=== PATIENT | male | born 1960 | race Caucasian/White ===

== ENCOUNTER 2018-03-05 05:48 | Inpatient (IN) | payer OTHER ==
[2018-03-05] VITALS (33 sets, daily range): BP systolic 98–168; BP diastolic 58–96; PULSE 65–112; RESP 13–22; BMI 40.4
[~2018-03-05] VITALS: Ht 157.5 cm; Wt 100.2 kg
[2018-03-05] MEDS ORDERED: CELECOXIB 200 MG CAP PO SCH (06:06)
[2018-03-05] MEDS ORDERED: TRANEXAMIC ACID 1,000 MG in NS 100 ML PRE-OP X1 IVPB ONE (06:06)
[2018-03-05] MEDS ORDERED: TRANEXAMIC ACID 1,000 MG in NS 100 ML INTRA-OP X1 IVPB ONE (06:06)
[2018-03-05] MEDS ORDERED: ACETAMINOPHEN 1000MG/100ML IV 100 ML IVPB ONE (06:06)
[2018-03-05] MEDS ORDERED: GABAPENTIN 300 MG CAP PO SCH ×2 (06:06→21:00)
[2018-03-05] MEDS ORDERED: CEFAZOLIN 2 GM/50 ML (PMX) 50 ML IVPB ONE (06:06)
[2018-03-05] MEDS ORDERED: DEXAMETHASONE 4 MG/ML 1 ML INJ IV SCH (06:06)
[2018-03-05] MEDS ORDERED: LACTATED RINGER'S 1,000 ML IV* SCH (06:06)
[2018-03-05] MEDS ORDERED: LANSOPRAZOLE 30 MG CAP PO ONE (06:30)
[2018-03-05] MEDS ORDERED: ONDANSETRON 4 MG INJ IV ONE (06:30)
[2018-03-05] MEDS ORDERED: SEVOFLURANE 15 MIN ONE (07:00)
[2018-03-05] MEDS ORDERED: CEFAZOLIN 1 GM INJ ONE (07:00)
--- NOTE | 2018-03-05 07:24 | PREAC ---
Date/Time of Note Date/Time of Note DATE: 03/05/18 TIME: 07:22 Anesthesia Eval and Record Evaluation Time Pre-Procedure Interview DATE: 03/05/18 TIME: 07:22 Age 57 Sex male NPO: 8 hrs Preoperative diagnosis right hip osteoarthritis Planned procedure right total hip replacement Past Medical History Past Medical History: Includes Cardio: Dyslipidemia GI: Morbid obesity Surgery & Anesthesia Issues No known issue Meds Anticoagulation: No Beta Renée within 24 hr: No Reason Beta Renée not given: Pt. not on B-Renée No Active Prescriptions or Reported Meds Current Medications Lactated Ringer's 1,000 ml @ 125 mls/hr Q8H IV* Last administered on 03/05/18at 06:29; Admin Dose 125 MLS/HR; Start 03/05/18 at 06:06; Stop 03/05/18 at 13:59 Dexamethasone (Decadron) 10 mg ONCE IV Last administered on 03/05/18at 06:29; Admin Dose 10 MG; Start 03/05/18 at 06:06; Stop 03/05/18 at 15:00 Gabapentin (Neurontin) 300 mg ONCE PO Last administered on 03/05/18at 06:28; Admin Dose 300 MG; Start 03/05/18 at 06:06; Stop 03/05/18 at 15:00 Celecoxib (Celebrex) 400 mg ONCE PO Last administered on 03/05/18at 07:09; Admin Dose 400 MG; Start 03/05/18 at 06:06; Stop 03/05/18 at 15:00 Ropivacaine/ Clonidine/ Epinephrine/ Ketorolac Tromethamine/ Sodium Chloride INTRA-OP INJ ; Start 03/05/18 at 16:00 Meds reviewed: Yes Allergies Coded Allergies: No Known Allergies (Verified Allergy, Unknown, 03/05/18) Allergies Reviewed: Yes Labs/Studies Labs Reviewed: Reviewed by anesthesiologist test: N/A Studies: ECG (nsr), CXR (nad) Pre-procedure Exam Last vitals Vital Signs Date Temp Pulse Resp B/P (MAP) Pulse Ox O2 O2 Flow FiO2 Time Delivery Rate 03/05/18 98.0 65 18 168/96 98 Room Air 07:00 (120) Airway: Adequate mouth opening, Adequate thyromental dist Mallampati: Mallampati II Teeth: Normal Lung: Normal Heart: Normal ASA Physical Status ASA physical status: 3 Emergency: None Planned Anesthetic General/MAC: ETT (vs. ), LMA Neuraxial: Spinal Planned Pain Management Sub-arachniod narcotics, Parenteral pain med Pre-operative Attestations Prior to commencing anesthesia and surgery, the patient was re-evaluated, there was verification of: *The patient's identity *The results of appropriate recent lab work and preoperative vital signs *The above evaluation not changing prior to induction *Anesthetic plan, risk benefits, alternative and complications discussed with patient/family; questions answered; patient/family understands, accepts and w ishes to proceed. DIANNA LEDBETTER MD Mar 05, 2018 07:24
--- NOTE | 2018-03-05 07:26 | HPN ---
Date/Time of Note Date/Time of Note DATE: 03/05/18 TIME: 07:25 Interval H&P Admission Note Pt. seen H&P reviewed: No system changes RLE: skin intact. SILT may/sa/spn/dpn/plantar nerves. +TA/GCS/EHL/FHL. 2+ DP pulse EJ GAMEZ MD Mar 05, 2018 07:26
[2018-03-05] MEDS ORDERED: MIDAZOLAM 1 MG/ML 2 ML INJ ONE (07:46)
--- NOTE | 2018-03-05 07:56 | PDOCDIS ---
Discharge Instructions DIAGNOSIS Discharge Diagnosis Status post right total hip arthroplasty via posterior route CONDITION [id number] Patient Condition: [id number] Good HOME CARE INSTRUCTIONS: [id number] Diet Instructions: [id number] Regular ACTIVITY: [id number] Activity Restrictions: [id number] Slowly Increase Activity Rest between Activity Avoid heavy lifting No Sexual Activity Do not Drive Do not operate Machinery Do not operate Power Tool Avoid Heavy Housework Keep Limb Elevated (Okay to apply cold therapy over dressing while resting.) Weight Bearing (Weight-bear as tolerated using front-wheeled walker) [id number] Bathing Restrictions: [id number] Shower (Okay to shower with aqua cell dressing. Aquacel dressing to remain on until seen postoperatively. Do not rub this area.) FOLLOW UP/APPOINTMENTS Follow-up Plan Follow-up at postoperative appointment provided to you at your preoperative exam LORI HAWLEY PA-C Mar 05, 2018 07:56
[2018-03-05] MEDS ORDERED: DEXAMETHASONE 4 MG/ML 5 ML INJ ONE (08:17)
[2018-03-05] MEDS ORDERED: PROPOFOL 40 ML ONE (08:38)
[2018-03-05] MEDS ORDERED: ONDANSETRON 4 MG INJ ONE (08:38)
[2018-03-05] MEDS ORDERED: SUCCINYLCHOLINE CHLORIDE 100 MG/5 ML SYG IV ONE (08:38)
[2018-03-05] MEDS ORDERED: LIDOCAINE 2% (SDV) 5 ML INJ ONE (08:38)
[2018-03-05] MEDS ORDERED: FAMOTIDINE 20 MG INJ ONE (08:39)
[2018-03-05] MEDS ORDERED: FENTAnyl 50 MCG/ML VIAL IV PRN ×3 (09:00)
[2018-03-05] MEDS ORDERED: MEPERIDINE 25 MG INJ IV PRN (09:00)
[2018-03-05] MEDS ORDERED: DIPHENHYDRAMINE 50 MG INJ IV PRN ×2 (09:00→12:30)
[2018-03-05] MEDS ORDERED: PROCHLORPERAZINE 10 MG INJ IV PRN (09:00)
[2018-03-05] MEDS ORDERED: ONDANSETRON 4 MG INJ IV PRN (09:00)
[2018-03-05] MEDS ORDERED: HYDROmorphONE 1 MG/5 ML IV SYRINGE IV PRN ×3 (09:00)
[2018-03-05] MEDS ORDERED: EPHEDrine SULFATE 50 MG/5 ML SYG ONE ×3 (09:14→10:31)
[2018-03-05] MEDS ORDERED: PHENYLephrine (100 MCG/ML) 10ML SYG ONE ×2 (11:25)
[2018-03-05] MEDS ORDERED: DOCUSATE SODIUM 100 MG CAP PO ONE (12:30)
[2018-03-05] MEDS ORDERED: ASPIRIN 81 MG TAB PO ONE (12:30)
[2018-03-05] MEDS ORDERED: NACL 0.9% 3 ML SYG IV SCH (12:30)
[2018-03-05] MEDS ORDERED: NA PHOSPHATE/BIPHOS 133 ML ENEMA PR PRN (12:30)
[2018-03-05] MEDS ORDERED: HYDROmorphONE 1 MG/ML SYG IV PRN (12:30)
[2018-03-05] MEDS ORDERED: MAGNESIUM HYDROXIDE 30ML CUP PO PRN (12:30)
[2018-03-05] MEDS ORDERED: NALOXONE (0.4 MG/ML) INJ IV PRN (12:30)
[2018-03-05] MEDS ORDERED: BISACODYL 10 MG SUPP PR PRN (12:30)
[2018-03-05] MEDS ORDERED: SENNA/DOCUSATE NA (8.6MG/50MG) TAB PO PRN (12:30)
[2018-03-05] MEDS ORDERED: BETHANECHOL 25 MG TAB PO PRN (12:30)
[2018-03-05] MEDS ORDERED: oxyCODONE 5 MG TAB PO PRN ×3 (12:30)
--- NOTE | 2018-03-05 12:36 | PAC ---
Date/Time of Note Date/Time of Note DATE: 03/05/18 TIME: 12:35 Post-Anesthesia Notes Post-Anesthesia Note Last documented vital signs Vital Signs Date Temp Pulse Resp B/P (MAP) Pulse Ox O2 O2 Flow FiO2 Time Delivery Rate 03/05/18 98.0 65 18 168/96 98 Room Air 07:00 (120) Activity: WNL Respiratory function: WNL Cardiovascular function: WNL Mental status: Baseline Pain reasonably controlled: Yes Hydration appropriate: Yes Nausea/Vomiting absent: Yes Comments BP: 123/66 HR: 92 RR: 15 T: 98.5 SaO2: 99% DIANNA LEDBETTER MD Mar 05, 2018 12:35
--- NOTE | 2018-03-05 13:25 | HP ---
Date/Time of Note Date/Time of Note DATE: 03/05/18 TIME: 13:24 Assessment/Plan VTE Prophylaxis Risk score (from Nsg)>0 risk: 6 SCD applied (from Nsg): Yes Pharmacological prophylaxis: other Lines/Catheters IV Catheter Type (from Nrsg): Peripheral IV Assessment/Plan Hospital Course Objective Physical exam General: Patient is laying in bed and answers questions appropriately Mentation: Patient is alert and oriented but mildly sedated Head: Normocephalic atraumatic Eyes: EOMI, pupils reactive to light Neck: Supple, nontender, midline Respiratory: Clear to auscultation bilaterally Cardiovascular: regular rate, no obvious murmurs Gastrointestinal: non-tender to palpation, bowel sounds heard. Neurological: Moves all extremities spontaneously Skin: Surgical site on right hip, bandaged, CDI Assessment and plan Total right hip arthroplasty -Orthopedic surgery to manage Questionable dyslipidemia -Patient states that he does not take atorvastatin, however patient is mildly sedated, will re-inquire when patient's is more alert Right hip arthritis -Status post arthroplasty, orthopedic surgery to manage Disposition -We will follow along as hospitalist consult, orthopedic surgery to manage. HPI/ROS Admit Date/Time Admit Date/Time Mar 05, 2018 at 05:48 Hx of Present Illness Patient is a male with a past medical history significant for right hip arthritis and questionable dyslipidemia who presents to [facility] for an elective total right hip arthroplasty. Patient is currently in the postanesthesia care unit and is mildly sedated however is alert and somewhat oriented. Patient currently denies any shortness of breath, chest pain, abdominal pain, leg pain except for at the surgical site however patient does feel a little loopy. PMH/Family/Social Past Medical History Medications Current Medications Lactated Ringer's 1,000 ml @ 125 mls/hr Q8H IV* Last administered on 03/05/18at 06:29; Admin Dose 125 MLS/HR; Start 03/05/18 at 06:06; Stop 03/05/18 at 13:59 Dexamethasone (Decadron) 10 mg ONCE IV Last administered on 03/05/18at 06:29; Admin Dose 10 MG; Start 03/05/18 at 06:06; Stop 03/05/18 at 15:00 Gabapentin (Neurontin) 300 mg ONCE PO Last administered on 03/05/18at 06:28; Admin Dose 300 MG; Start 03/05/18 at 06:06; Stop 03/05/18 at 15:00 Celecoxib (Celebrex) 400 mg ONCE PO Last administered on 03/05/18at 07:09; Admin Dose 400 MG; Start 03/05/18 at 06:06; Stop 03/05/18 at 15:00 Ropivacaine/ Clonidine/ Epinephrine/ Ketorolac Tromethamine/ Sodium Chloride INTRA-OP INJ Last administered on 03/05/18at 09:18; Admin Dose 112.3 ML; Start 03/05/18 at 09:00; Stop 03/08/18 at 08:59 Lactated Ringer's 1,000 ml @ 80 mls/hr [id number] IV ; Start 03/05/18 at 12:26 Oxycodone HCl (Roxicodone) 15 mg Q4H PRN PO PAIN; Start 03/05/18 at 12:30 Oxycodone HCl (Roxicodone) 10 mg Q4H PRN PO PAIN; Start 03/05/18 at 12:30 Oxycodone HCl (Roxicodone) 5 mg Q4H PRN PO PAIN; Start 03/05/18 at 12:30 Hydromorphone HCl (Dilaudid) 1 mg Q3H PRN IV BREAKTHROUGH PAIN; Start 03/05/18 at 12:30 Acetaminophen (Tylenol Tab) 1,000 mg Q8 PO ; Start 03/06/18 at 14:00 Acetaminophen 100 ml @ 400 mls/hr Q8H IVPB ; Start 03/05/18 at 13:00; Stop 03/06/18 at 05:14 Ondansetron HCl (Zofran Inj) 4 mg Q4H PRN IV NAUSEA AND/OR VOMITING; Start 03/06/18 at 12:30 Cefazolin Sodium/ Dextrose 50 ml @ 100 mls/hr Q8H IVPB ; Start 03/05/18 at 13:00; Stop 03/06/18 at 05:29 Gabapentin (Neurontin) 300 mg QHS PO ; Start 03/05/18 at 21:00; Status UNV Dexamethasone (Decadron) 10 mg ONCE ONCE IV ; Start 03/06/18 at 07:00; Stop 03/06/18 at 07:01; Status UNV Pantoprazole (Protonix Tab) 40 mg DAILY@06 PO ; Start 03/06/18 at 06:00 Docusate Sodium (Colace) 200 mg BID PO ; Start 03/06/18 at 09:00; Stop 03/08/18 at 21:01 Simethicone (Mylicon) 80 mg TID PRN PO DISTENSION/GAS/BLOATING; Start 03/05/18 at 12:30; Status UNV Senna/Docusate Sodium (Senokot-S) 2 tab BID PRN PO CONSTIPATION; Start 03/05/18 at 12:30; Status UNV Magnesium Hydroxide (Milk Of Mag) 30 ml HS PRN PO CONSTIPATION; Start 03/05/18 at 12:30 Bisacodyl (Dulcolax Supp) 10 mg DAILY PRN NE CONSTIPATION; Start 03/05/18 at 12:30 Sodium Biphosphate/ Sodium Phosphate (Fleet Enema) 133 ml DAILY PRN NE CONSTIPATION; Start 03/05/18 at 12:30; Status UNV Diphenhydramine HCl (Benadryl) 25 mg Q4H PRN IV ITCHING; Start 03/05/18 at 12:30 Naloxone HCl (Narcan) 0.2 mg Q2M PRN IV DECREASED REPIRATORY RATE; Start 03/05/18 at 12:30 IV Flush (NS 3 ml) 3 ml per protocol IV ; Start 03/05/18 at 12:30 Bethanechol Chloride (Urecholine) 25 mg URINARY CATH D/C PRN PO UNABLE TO VOID; Start 03/05/18 at 12:30; Status UNV Aspirin (Halfprin) 81 mg BID PO ; Start 03/06/18 at 09:00; Status UNV Hydralazine HCl (Apresoline) 10 mg Q4H PRN IV sbp >160; Start 03/05/18 at 13:30; Status UNV Coded Allergies: No Known Allergies (Verified Allergy, Unknown, 03/05/18) Social History Smoking Status: Never smoker Exam/Review of Systems Vital Signs Vitals Vital Signs Date Temp Pulse Resp B/P (MAP) Pulse Ox O2 O2 Flow FiO2 Time Delivery Rate 03/05/18 98.5 92 16 124/66 100 Mask 8.0 12:24 (85) NAVI CORDOBA Mar 05, 2018 13:24
--- NOTE | 2018-03-05 13:26 | OPR ---
Date/Time of Note Date/Time of Note DATE: 03/05/18 TIME: 13:10 Operative Report Procedure Date: Mar 05, 2018 Preoperative Diagnosis Right hip primary osteoarthritis Postoperative Diagnosis Right hip primary osteoarthritis Operation/Procedure Performed Right total hip arthroplasty Surgeon see signature line Welder Tech Carlito Bernard Anesthesia Type: general, spinal Estimated Blood Loss: other (500 mL) Transfusion none Specimen None Grafts/Implants none Complications none Pt Condition Post Procedure: stable Disposition: PACU Procedure Description PREOP DIAGNOSIS: Right hip osteoarthritis. POSTOP DIAGNOSIS: Same. SURGICAL PROCEDURE: Right total hip arthroplasty (CPT code 95219). INDICATIONS: The patient is a 57 year-old man with an orthopaedic history significant for progressively worsening right hip pain. The patient failed conservative management and wished to pursue surgical options. On physical exam, they walk with a severe antalgic gait. No previous open surgical scars. Guarded range of motion but no contractures. Neurovascularly intact. Radiographs reveal advanced osteoarthritis with DJD. INFORMED CONSENT: The operative procedure was explained using diagrams and/or three-dimensional models. The rehabilitation, the potential risks, benefits and alternatives were discussed at length. Specific risks discussed included but were not limited to excessive blood loss and the need for transfusion and therefore the risk of transmissible disease or transfusion reaction, deep infection and the potential need for repetitive debridements, implant removal, long-term antibiotic therapy, possibly requiring deep venous access, leg-length discrepancy, dislocation, possibly recurrent, with the need for closed versus open reduction, bracing, fem oral or acetabular fracture and the need for further surgery for fixation, neurovascular injury with temporary or permanent numbness, tingling, weakness or paralysis, deep venous thrombosis, pulmonary embolism and , persistent pain, weakness, or limp, late aseptic loosening and the need for revision, polyethylene wear-induced osteolysis and related problems, and finally, a wide variety of unanticipated medical problems. The opportunity to ask questions and address any concerns was provided. The patient wished to proceed. FINDINGS: Complete loss of cartilage on the femoral head and in the acetabulum. Coxa breva. SURGERY IN DETAIL: The patient was taken into the Operating Room and placed supine on the operating table. Preoperatively, they were administered Ancef 2 g. They were administered spinal and general anesthesia by the Anesthesia Department. There was some difficulty with intubation. After some difficulty it was decided to place an LMA. Dexamethasone 10mg IV was administered. 1 g of TXA was administered. The patient was placed on an [facility] Lateral Positioner in a left lateral decubitus position with the right hip superior. An axillary roll was placed, all pressure points were confirmed padded. The right hip region was prepped and draped in sterile fashion. A surgical pause was performed, correctly identifying the patient's name, the correct medical record number, the correct diagnosis, correct surgical procedure, and the correct extremity. 1g of tranexamic acid was dosed at the time of incision A posterolateral skin incision, approximately 15-20 cm in length was made, centered over the greater trochanter, skin and subcutaneous tissue sharply dissected. Deep fascial layer was identified and incised in line with the skin incision. Gluteus medius was retracted anteriorly. Piriformis tendon was identified, tagged with a stitch, and incised close to its insertion. The interval between the gluteus minimus and hip capsule was developed superiorly, and a superior retractor was placed. Short external rotators were subperiosteally incised from the posterior proximal femur to the level of the lesser trochanter and an inferior retractor was placed. A posterior capsulotomy was performed. Two tag stitches were placed in the capsule. The hip was dislocated. A femoral neck osteotomy was performed at the preoperatively templated level. A radial incision was made in the inferior capsule to the level of transverse acetabular ligament, which was identified, and an inferior retractor was placed inferior to the transverse acetabular ligament or inferior to the cotyloid notch. Care was taken when incising the inferior capsule with the Bovie. However a medium sized artery was cut and bleeding briskly. The 2 ends of the artery retracted slightly into the o bturator foramen. Carefully dissected further inferiorly to identify the 2 ends of the blood vessel. There were clamped with tonsils and then cauterized. The clamps were removed and the bleeding resumed. Again the 2 ends of the artery were clamped and cauterized. An aqua Melara was then used to further cauterize the vessel. Clamps removed and bleeding was stopped. Probably 150-200 milliliters of blood was lost at this time. An anterior retractor was placed at the rim of the acetabulum. The acetabular labrum was then sharply excised. There was a large pulvinar in the base of the acetabulum, which was removed with electrocautery. The acetabulum was then sequentially reamed, beginning at 45 mm, up to a size 55 outer diameter reamer. A size 56 mm Gription-[place] cup was inserted. A single dome screw was placed with excellent purchase, and a 36 mm polyethylene trial was inserted and attention was placed to preparing the femur. Soft tissues were removed from the junction of the greater trochanter and the femoral neck osteotomy. A box osteotome was used lateralize the starting point. A starting awl was utilized, followed by a lateralizing reamer, followed by axial reamers for the [place] system up to a size 6. The femoral canal was then broached up to a size 5. A neutral femoral head was inserted and the hip was reduced. Range of motion and stability were acceptable, not great, including forward flexion to greater than 90 degrees, internal rotation 50 degrees at 90 degrees flexion, internal rotation 60 degrees with the hip adducted and at 45 degrees of flexion. External Rotation was also tested, and was stable with no impingement or instability at full extension and 30 degrees external rotation. Ranawat sign was 40 degrees. Intraoperative x-ray revealed that the hip was long and with decreased offset. It was noted during templating that the neck was varus and the planned osteotomy was made close to the lesser trochanter. Intraoperatively the cut was higher. Therefore, it was decided to remove the trial femur and sink a size 4 [place] several more millimeters in order to compensate for the increased leg length as well as the varus neck. Calcar planer was used to bring the osteotomy to the level of the size 4 [place]. A high offset neck was placed the hip is reduced. Range of motion was tested and significantly improved. A 10 degree lipped liner trial was also in place at this time. The hip was dislocated in controlled manner using a bone hook and the trial components removed. Local anesthetic was injected periarticular. A formal lift 36 mm +4 mm 10 degree lipped polyethylene was inserted into the cup, confirmed seated and locked. On the femoral side, a [place] size 4 high offset stem was inserted. A 36 mm +1.5 mm ceramic head was inserted onto the taper. The hip was reduced. One final time range of motion, stability, and soft tissue tension were satisfactory. The hip was able to be flexed past 90 degrees, flex 90 degrees with internal rotation to 70 degrees, flex to 45 degrees with the hip abducted w ith internal rotation to 70 degrees, no impingement with external rotation. The wound was thoroughly irrigated. 1g of tranexamic acid was dosed. The previously tagged arthrotomy, as well as the piriformis tendon was reattached to the gluteus medius at the level the greater trochanter. The deep fascial layer was closed with 1 Vicryl in a [id number], interrupted fashion, deep subcutaneous tissues irrigated and closed with 0 Vicryl interrupted fashion, subcutaneous tissues irrigated, closed with 2-0 Vicryl in an inverted, interrupted fashion. The skin was closed with kristi. A sterile dressing was applied, abduction pillow was placed between the legs, and the patient was transferred to a supine position. Postoperative clinical leg lengths, rotation of limb were neutral and symmetric. All Counts were correct x2 DISPOSITION: Patient transferred to PACU in stable condition. The patient will be weight bearing as tolerated on the operative extremity. PT will begin POD#0 if available. Posterior hip precautions for 3 months with an abduction pillow. Postoperative AP pelvis will be ordered in PACU. Bilateral knee high SCDs will be worn while admitted. ASA 81mg will be given for DVT prophylaxis for 6 weeks. Pain will be controlled with medication. The patient will follow up in clinic in approximately 2 weeks. Implant: DePuy: Gription-pinnacle acetabulum size 56 mm Polyethylene Size 36 mm +4 mm 10 degree lipped Femoral stem: [place] press-fit size 4, high offset Femoral head: 36 mm +1.5 ceramic. EJ GAMEZ MD Mar 05, 2018 13:25
[2018-03-05] MEDS ORDERED: hydrALAzine 20 MG INJ IV PRN (13:30)
[2018-03-05] MEDS: CEFAZOLIN 2 GM/50 ML (PMX) 50 ML IVPB SCH ×2 (13:37→21:05)
[2018-03-05] MEDS: ACETAMINOPHEN 1000MG/100ML IV 100 ML IVPB SCH ×2 (13:44→20:37)
[2018-03-05] MEDS: LACTATED RINGER'S 1,000 ML IV SCH ×2 (14:47→22:21)
--- NOTE | 2018-03-05 16:47 | CONS ---
Date/Time of Note Date/Time of Note DATE: 03/05/18 TIME: 16:47 Assessment/Plan Assessment/Plan Hospital Course Objective Physical exam General: Patient is laying in bed and answers questions appropriately Mentation: Patient is alert and oriented but mildly sedated Head: Normocephalic atraumatic Eyes: EOMI, pupils reactive to light Neck: Supple, nontender, midline Respiratory: Clear to auscultation bilaterally Cardiovascular: regular rate, no obvious murmurs Gastrointestinal: non-tender to palpation, bowel sounds heard. Neurological: Moves all extremities spontaneously Skin: Surgical site on right hip, bandaged, CDI Assessment and plan Total right hip arthroplasty -Orthopedic surgery to manage Questionable dyslipidemia -Patient states that he does not take atorvastatin, however patient is mildly sedated, will re-inquire when patient's is more alert Right hip arthritis -Status post arthroplasty, orthopedic surgery to manage Disposition -We will follow along as hospitalist consult, orthopedic surgery to manage. Consultation Date/Type/Reason Admit Date/Time Mar 05, 2018 at 05:48 Hx of Present Illness Patient is a male with a past medical history significant for right hip arthritis and questionable dyslipidemia who presents to [facility] for an elective total right hip arthroplasty. Patient is currently in the postanesthesia care unit and is mildly sedated however is alert and somewhat oriented. Patient currently denies any shortness of breath, chest pain, abdominal pain, leg pain except for at the surgical site however patient does feel a little loopy. Past Medical History Medications Current Medications Ropivacaine/ Clonidine/ Epinephrine/ Ketorolac Tromethamine/ Sodium Chloride INTRA-OP INJ Last administered on 03/05/18at 09:18; Admin Dose 112.3 ML; Start 03/05/18 at 09:00; Stop 03/08/18 at 08:59 Lactated Ringer's 1,000 ml @ 80 mls/hr [id number] IV ; Start 03/05/18 at 12:26 Oxycodone HCl (Roxicodone) 15 mg Q4H PRN PO PAIN; Start 03/05/18 at 12:30 Oxycodone HCl (Roxicodone) 10 mg Q4H PRN PO PAIN; Start 03/05/18 at 12:30 Oxycodone HCl (Roxicodone) 5 mg Q4H PRN PO PAIN; Start 03/05/18 at 12:30 Hydromorphone HCl (Dilaudid) 1 mg Q3H PRN IV BREAKTHROUGH PAIN; Start 03/05/18 at 12:30 Acetaminophen (Tylenol Tab) 1,000 mg Q8 PO ; Start 03/06/18 at 14:00 Acetaminophen 100 ml @ 400 mls/hr Q8H IVPB Last administered on 03/05/18at 13:44; Admin Dose 400 MLS/HR; Start 03/05/18 at 13:00; Stop 03/06/18 at 05:14 Ondansetron HCl (Zofran Inj) 4 mg Q4H PRN IV NAUSEA AND/OR VOMITING Last administered on 03/05/18at 14:10; Admin Dose 4 MG; Start 03/06/18 at 12:30 Cefazolin Sodium/ Dextrose 50 ml @ 100 mls/hr Q8H IVPB Last administered on 03/05/18at 13:37; Admin Dose 100 MLS/HR; Start 03/05/18 at 13:00; Stop 03/06/18 at 05:29 Gabapentin (Neurontin) 300 mg QHS PO ; Start 03/05/18 at 21:00 Dexamethasone (Decadron) 10 mg ONCE ONCE IV ; Start 03/06/18 at 07:00; Stop 03/06/18 at 07:01 Pantoprazole (Protonix Tab) 40 mg DAILY@06 PO ; Start 03/06/18 at 06:00 Docusate Sodium (Colace) 200 mg BID PO ; Start 03/06/18 at 09:00; Stop 03/08/18 at 21:01 Simethicone (Mylicon) 80 mg TID PRN PO DISTENSION/GAS/BLOATING; Start 03/05/18 at 12:30 Senna/Docusate Sodium (Senokot-S) 2 tab BID PRN PO CONSTIPATION; Start 03/05/18 at 12:30 Magnesium Hydroxide (Milk Of Mag) 30 ml HS PRN PO CONSTIPATION; Start 03/05/18 at 12:30 Bisacodyl (Dulcolax Supp) 10 mg DAILY PRN SD CONSTIPATION; Start 03/05/18 at 12:30 Sodium Biphosphate/ Sodium Phosphate (Fleet Enema) 133 ml DAILY PRN SD CONSTIPATION; Start 03/05/18 at 12:30 Diphenhydramine HCl (Benadryl) 25 mg Q4H PRN IV ITCHING; Start 03/05/18 at 12:30 Naloxone HCl (Narcan) 0.2 mg Q2M PRN IV DECREASED REPIRATORY RATE; Start 03/05/18 at 12:30 IV Flush (NS 3 ml) 3 ml per protocol IV ; Start 03/05/18 at 12:30 Bethanechol Chloride (Urecholine) 25 mg URINARY CATH D/C PRN PO UNABLE TO VOID; Start 03/05/18 at 12:30 Aspirin (Halfprin) 81 mg BID PO ; Start 03/06/18 at 09:00 Hydralazine HCl (Apresoline) 10 mg Q4H PRN IV sbp >160; Start 03/05/18 at 13:30 Allergies: Coded Allergies: No Known Allergies (Verified Allergy, Unknown, 03/05/18) Social History Smoking Status: Never smoker Exam/Review of Systems Vital Signs Vitals Vital Signs Date Temp Pulse Resp B/P (MAP) Pulse Ox O2 O2 Flow FiO2 Time Delivery Rate 03/05/18 99.2 112 19 135/72 98 14:08 (93) 03/05/18 Room Air 13:49 03/05/18 2.0 13:14 Medications Medications Current Medications Ropivacaine/ Clonidine/ Epinephrine/ Ketorolac Tromethamine/ Sodium Chloride INTRA-OP INJ Last administered on 03/05/18at 09:18; Admin Dose 112.3 ML; Start 03/05/18 at 09:00; Stop 03/08/18 at 08:59 Lactated Ringer's 1,000 ml @ 80 mls/hr [id number] IV ; Start 03/05/18 at 12:26 Oxycodone HCl (Roxicodone) 15 mg Q4H PRN PO PAIN; Start 03/05/18 at 12:30 Oxycodone HCl (Roxicodone) 10 mg Q4H PRN PO PAIN; Start 03/05/18 at 12:30 Oxycodone HCl (Roxicodone) 5 mg Q4H PRN PO PAIN; Start 03/05/18 at 12:30 Hydromorphone HCl (Dilaudid) 1 mg Q3H PRN IV BREAKTHROUGH PAIN; Start 03/05/18 at 12:30 Acetaminophen (Tylenol Tab) 1,000 mg Q8 PO ; Start 03/06/18 at 14:00 Acetaminophen 100 ml @ 400 mls/hr Q8H IVPB Last administered on 03/05/18at 13:44; Admin Dose 400 MLS/HR; Start 03/05/18 at 13:00; Stop 03/06/18 at 05:14 Ondansetron HCl (Zofran Inj) 4 mg Q4H PRN IV NAUSEA AND/OR VOMITING Last administered on 03/05/18at 14:10; Admin Dose 4 MG; Start 03/06/18 at 12:30 Cefazolin Sodium/ Dextrose 50 ml @ 100 mls/hr Q8H IVPB Last administered on 03/05/18at 13:37; Admin Dose 100 MLS/HR; Start 03/05/18 at 13:00; Stop 03/06/18 at 05:29 Gabapentin (Neurontin) 300 mg QHS PO ; Start 03/05/18 at 21:00 Dexamethasone (Decadron) 10 mg ONCE ONCE IV ; Start 03/06/18 at 07:00; Stop 03/06/18 at 07:01 Pantoprazole (Protonix Tab) 40 mg DAILY@06 PO ; Start 03/06/18 at 06:00 Docusate Sodium (Colace) 200 mg BID PO ; Start 03/06/18 at 09:00; Stop 03/08/18 at 21:01 Simethicone (Mylicon) 80 mg TID PRN PO DISTENSION/GAS/BLOATING; Start 03/05/18 at 12:30 Senna/Docusate Sodium (Senokot-S) 2 tab BID PRN PO CONSTIPATION; Start 03/05/18 at 12:30 Magnesium Hydroxide (Milk Of Mag) 30 ml HS PRN PO CONSTIPATION; Start 03/05/18 at 12:30 Bisacodyl (Dulcolax Supp) 10 mg DAILY PRN SD CONSTIPATION; Start 03/05/18 at 12:30 Sodium Biphosphate/ Sodium Phosphate (Fleet Enema) 133 ml DAILY PRN SD CONSTIPATION; Start 03/05/18 at 12:30 Diphenhydramine HCl (Benadryl) 25 mg Q4H PRN IV ITCHING; Start 03/05/18 at 12:30 Naloxone HCl (Narcan) 0.2 mg Q2M PRN IV DECREASED REPIRATORY RATE; Start 03/05/18 at 12:30 IV Flush (NS 3 ml) 3 ml per protocol IV ; Start 03/05/18 at 12:30 Bethanechol Chloride (Urecholine) 25 mg URINARY CATH D/C PRN PO UNABLE TO VOID; Start 03/05/18 at 12:30 Aspirin (Halfprin) 81 mg BID PO ; Start 03/06/18 at 09:00 Hydralazine HCl (Apresoline) 10 mg Q4H PRN IV sbp >160; Start 03/05/18 at 13:30 NAVI CORDOBA Mar 05, 2018 16:47
[2018-03-06 00:17] VITALS: BP 111/59; PULSE 82; RESP 18
[2018-03-06] MEDS: ACETAMINOPHEN 1000MG/100ML IV 100 ML IVPB SCH (04:25)
[2018-03-06] MEDS: CEFAZOLIN 2 GM/50 ML (PMX) 50 ML IVPB SCH (04:52)
[2018-03-06] MEDS ORDERED: PANTOPRAZOLE (EC) 40 MG TAB PO SCH (06:00)
[2018-03-06] MEDS ORDERED: DEXAMETHASONE 10 MG/ML 1 ML INJ IV ONE (07:00)
--- NOTE | 2018-03-06 07:28 | PN ---
Date/Time of Note Date/Time of Note DATE: 03/06/18 TIME: 07:24 Assessment/Plan VTE Prophylaxis VTE Prophylaxis Intervention: ambulation, SCD's, other (Aspirin 81 mg) Lines/Catheters IV Catheter Type (from Nrsg): Peripheral IV Schumacher in Place (from Nrsg): Yes Assessment/Plan Assessment/Plan -Pain Meds as needed -Dressing is clean and intact. -OOB with PT -ASA/SCDs for DVT Prophylaxis -Continue monitoring with Internal Medicine -Patient Stable -Will order EKG to rule out cardiac etiology in regards to chest pain status post surgery. Subjective 24 Hr Interval Summary 57-year-old male postop day 1 status post right total hip arthroplasty. Patient doing well. No pain complaints in regards to the hip. Patient does state that he has mild chest pain that he attributes to lying down for long periods of time. Not necessarily a tightness but more like an aching pain. Denies any shortness of breath. Has initiated physical therapy and walking up to 120 feet. Denies any calf pain. No fever, chills or malaise. Pain Control: mild Exam/Review of Systems Vital Signs Vitals Vital Signs Date Temp Pulse Resp B/P (MAP) Pulse Ox O2 O2 Flow FiO2 Time Delivery Rate 03/06/18 98.3 82 18 111/59 96 Room Air 00:17 (76) 03/05/18 2.0 13:14 Intake and Output 03/05/18 03/05/18 03/06/18 1414:59 22:59 06:59 IntakeIntake Total 3600 ml 275 ml 1200 ml OutputOutput Total 1100 ml 1600 ml BalanceBalance 2500 ml 275 ml -400 ml Exam Free Text/Dictation -No complications with dressing intact. Slight bruising to the wound that is subsided along the distal third but dressing remains intact. -Thigh soft -4+/5 Quadriceps, Tibialis Anterior, EHL Gastrocnemius/Soleus and Peroneals -Normal Sensation -Palpable DP/PT, Capillary Refill <2 secs -No Distal Edema -Negative Kiera Sign/No calf pain -Toes Freely Movable Constitutional: alert, oriented, well developed Results Result Diagram: 03/06/18 0438 03/06/18 0438 LORI HAWLEY PA-C Mar 06, 2018 07:28
[2018-03-06 07:49] VITALS: BP 112/58; PULSE 75; RESP 17
[2018-03-06] MEDS ORDERED: DOCUSATE SODIUM 100 MG CAP PO ONE (07:58)
[2018-03-06] MEDS ORDERED: ASPIRIN 81 MG TAB ONE (07:58)
[2018-03-06] MEDS ORDERED: ASPIRIN (EC) 81 MG TAB PO SCH (09:00)
[2018-03-06] MEDS ORDERED: DOCUSATE SODIUM 100 MG CAP PO SCH (09:00)
[2018-03-06] MEDS ORDERED: ONDANSETRON 4 MG INJ IV PRN (12:30)
[2018-03-06] MEDS: LACTATED RINGER'S 1,000 ML IV SCH (13:26)
--- NOTE | 2018-03-06 13:52 | PN ---
Date/Time of Note Date/Time of Note DATE: 03/06/18 TIME: 13:50 Assessment/Plan Lines/Catheters IV Catheter Type (from Nrsg): Saline Lock Schumacher in Place (from Nrsg): Yes Assessment/Plan Chief Complaint/Hosp Course POD#1 s/p right primary JENNIFER. Patient is doing very well. Pain is well controlled he is doing well therapy. He has good support at home. Patient w ould like to go home today. -Post op H&H stable -PT/OT. Posterior Hip Precautions -Joints pain control protocol -DVT prophylaxis: SCD's, aspirin 81 mg twice daily times 6 weeks -Weight bearing status: as tolerated -Post-op XR ordered -Abx: 24h vanc/ancef -Diet: ADAT -Schumacher: DC'd -Discharge planning consult Planned Discharge Date: Today Discharge to home with home health Subjective 24 Hr Interval Summary Patient doing well No acute events overnight Pain is well controlled Exam/Review of Systems Vital Signs Vitals Vital Signs Date Temp Pulse Resp B/P (MAP) Pulse Ox O2 O2 Flow FiO2 Time Delivery Rate 03/06/18 98.3 75 17 112/58 96 07:49 (76) 03/06/18 Room Air 00:17 03/05/18 2.0 13:14 Intake and Output 03/05/18 03/05/18 03/06/18 1515:00 23:00 07:00 IntakeIntake Total 3600 ml 275 ml 1200 ml OutputOutput Total 1100 ml 1600 ml BalanceBalance 2500 ml 275 ml -400 ml Exam Free Text/Dictation Right lower extremity: Dressing: clean, dry, and intact, no erythema Sensation intact to light touch in a sural, saphenous, deep peroneal, superficial peroneal, medial and lateral plantar nerve distribution. Motor is intact, patient able to dorsiflex and plantarflex ankle and extend and flex great toe. Dorsalis Pedis pulse +2, Brisk capillary refill. Compartments are soft. Calves non-tender to palpation bilaterally. Results Result Diagram: 03/06/18 0438 03/06/18 0438 EJ GAMEZ MD Mar 06, 2018 13:51
[2018-03-06] MEDS ORDERED: ACETAMINOPHEN 500 MG TAB PO SCH (14:00)
--- NOTE | 2018-03-07 10:30 | DS ---
Date/Time of Note Date/Time of Note DATE: 03/07/18 TIME: 10:29 Discharge Summary Admission/Discharge Info Admit Date/Time Mar 05, 2018 at 05:48 Discharge Date/Time Mar 06, 2018 at 15:10 Discharge Diagnosis Status post right total hip arthroplasty via posterior route Patient Condition: Good Hospital Course On the day of admission, the patient underwent Right total hip arthroplasty. Intraoperative complications: None Postoperative complications: None The patient was given prophylactic antibiotics and anticoagulants. On the day of surgery and first postoperative day patient was started on gait training and was taught usual restrictions following Posterior hip replacement On postoperative day 1 dressing was clean dry and intact. No complications were observed. On the day of discharge, the wound was clean and healing well; there was no sign of infection. Wound care instructions were discussed with the patient. Discharge Temperature:98.3 degrees Discharge White Blood Cell Count: 15.1 Discharge Hemoglobin:9.5 The patient was discharged home with home health. Arrangements were made for visiting nurses and home health/physical therapy. The patient will be seen in office at scheduled postoperative evaluation date given on their preoperative exam. Should patient complain of any problems prior to scheduled postoperative evaluation date, they may call into outpatient clinic to determine if they need to be scheduled at sooner appointment to be seen immediately if needed. Discharge medications: As per medication reconciliation form Diet: Same as preadmission diet. This is Lori Layton PA-C dictating discharge summary for Dr. Gastelum. Home Meds No Active Prescriptions or Reported Meds Follow-up Plan Follow-up at postoperative appointment provided to you at your preoperative exam Primary Care Provider Pending Labs Laboratory Tests Test 03/06/18 20:33 Lab Scanned Report REFERENCE LAB [id number] LORI HAWLEY PA-C Mar 07, 2018 10:30
--- NOTE | 2018-03-07 21:45 | RADRPT ---
Vent Rate: 70 bpm RR Interval: 0 msec NC Interval: 140 msec QRS Duration: 94 msec QT Interval: 386 msec QTC Interval: 416 msec P-R-T [place]: 39 - 40 - 64 degrees Normal sinus rhythm Nonspecific T wave abnormality Abnormal ECG Electronically Signed By: Amish Newman [id number]
--- NOTE | 2018-04-03 17:01 | PN ---
Date/Time of Note Date/Time of Note DATE: 03/06/18 TIME: 17:00 Assessment/Plan VTE Prophylaxis Risk score (from Nsg)>0 risk: 3 SCD applied (from Nsg): Yes Pharmacological prophylaxis: other Lines/Catheters IV Catheter Type (from Nrsg): Saline Lock Urinary Cath still in place: No Assessment/Plan Hospital Course This note is originally intended for 03/06/18 subjective no acute overnight events Objective Physical exam General: Patient is laying in bed and answers questions appropriately Mentation: Patient is alert and oriented but mildly sedated Head: Normocephalic atraumatic Eyes: EOMI, pupils reactive to light Neck: Supple, nontender, midline Respiratory: Clear to auscultation bilaterally Cardiovascular: regular rate, no obvious murmurs Gastrointestinal: non-tender to palpation, bowel sounds heard. Neurological: Moves all extremities spontaneously Skin: Surgical site on right hip, bandaged, CDI Assessment and plan Total right hip arthroplasty -Orthopedic surgery to manage Questionable dyslipidemia -f/u with outpatient physician Right hip arthritis -Status post arthroplasty, orthopedic surgery to manage Disposition -We will follow along as hospitalist consult, orthopedic surgery to manage. NAVI CORDOBA Apr 03, 2018 17:01
== END 2018-03-06 15:10 | disposition home health service (06) | DRG 470 ==
LOC: REC 05:48 → EDUNIT# 07:30 → MS1 13:37
PROVIDERS: ADMIT Orthopaedic Surgery Adult Reconstructive Orthopaedic Surgery; ATTEND Orthopaedic Surgery Adult Reconstructive Orthopaedic Surgery
PROC: 0SR904Z Replacement of Right Hip Joint with Ceramic on Polyethylene Synthetic Substitute, Open Approach (ICD-10-PCS; principal; 2018-03-05 07:30)
DX: M16.11 Unilateral primary osteoarthritis, right hip (principal); E66.01 Morbid (severe) obesity due to excess calories; Z68.41 Body mass index [BMI] 40.0-44.9, adult
CPT/HCPCS: 72170; 73500; 73530; 80048; 81001; 85025; 85610; 86850; 86900; 86901; 87081; 87086; 88304; 88311; 93005; 97116; 97161; 97167; 97530; 97535; C1713; C1776; J0131; J0171; J0690; J0735; J1100; J1885; J2250; J2370; J2405; J2795; J3010; J7120